=== PATIENT | male | born 1990 | race Caucasian/White ===

== ENCOUNTER 2023-06-28 10:24 | Outpatient (CLI) | payer BC, SELFPAY ==
--- NOTE | 2023-06-28 10:15 | RT.EKG_ITS ---
APPROVED REPORT Exam: Resting ECG Reason for Exam: Pre-Op Patient Location: O HR:76 bpm ECG Measurements Heart Rate 76 AXIS MI 124 P 17 QRSd 97 QRS 12 QT 358 T 40 QTc 403 Conclusion Sinus rhythm...normal P axis, V-rate 50- 99 Normal Electrocardiogram
== END 2023-06-28 10:25 | disposition home or self-care (01) ==
LOC: DI.KIM 10:25
PROVIDERS: PCP Nurse Practitioner Adult Health; Visit Provider Nurse Practitioner Adult Health
DX: Z01.818 Encounter for other preprocedural examination (principal)
CPT/HCPCS: 93010

== ENCOUNTER 2023-07-05 14:11 | Outpatient (CLI) | payer BC, SELFPAY ==
[2023-07-05 14:06] LABS: Abs Immature Grans 0.04 10^3/uL (0.0-0.06); Absolute Basophil Count 0.05 10^3/uL (0.0-0.2); Absolute Eosinophil Count 0.24 10^3/uL (0.0-0.7); Absolute Lymphocyte Count 2.56 10^3/uL (1.2-3.4); Absolute Monocyte Count 0.61 10^3/uL (0.1-0.8); Absolute Neutrophil Count 4.05 10^3/uL (1.2-6.7); Basophils % 0.7; Eosinophils % 3.2; HCT 48.9 % (40.0-50.0); HGB 16.8 g/dL (13.5-17.5); Immature Grans % 0.5; Lymphocytes % 33.9; MCH 30.3 pg (27.0-33.0); MCHC 34.4 % (32.0-36.0); MCV 88 fL (80-95); MPV 11.1 fL (8.0-11.0); Monocytes % 8.1; Neutrophils % 53.6; Platelet Count 274 10^3/uL (130-400); RBC 5.55 10^6/uL (4.36-5.78); RDW 12.5 % (11.8-14.1); RDW-SD 40.4 fL; WBC 7.55 10^3/uL (4.4-10.8)
[2023-07-05 14:16] LABS: Albumin 4.2 g/dL (3.4-5.0); Anion Gap 8.1 mmol/L (3-11); BUN 20 mg/dL (7-18); CO2 28.9 mmol/L (21.0-32.0); CREATININE 1.2 mg/dL (0.70-1.30); Chloride 103 mmol/L (98-107); Glucose 141 mg/dL (74-106); Sodium 140 mmol/L (136-145)
== END 2023-07-05 14:12 | disposition home or self-care (01) ==
LOC: LBO 14:11
PROVIDERS: PCP Nurse Practitioner Adult Health; Visit Provider Orthopaedic Surgery
DX: M87.051 Idiopathic aseptic necrosis of right femur (principal); M87.052 Idiopathic aseptic necrosis of left femur
CPT/HCPCS: 36415; 80048; 82040; 85025

== ENCOUNTER 2023-11-15 20:56 | Outpatient (REF) | payer BC, SELFPAY ==
[2023-11-15 20:56] LABS: Hemoglobin A1C 12.2 % (<5.7)
== END 2023-11-15 20:57 | disposition home or self-care (01) ==
LOC: LBN 20:56
PROVIDERS: PCP Nurse Practitioner Adult Health; Visit Provider Nurse Practitioner Family
DX: E11.9 Type 2 diabetes mellitus without complications (principal)
CPT/HCPCS: 83036

== ENCOUNTER 2024-06-23 03:39 | Outpatient (CLI) | payer BC, SELFPAY ==
[2024-06-23 09:39] LABS: Hemoglobin A1C 5.4 % (<5.7)
[2024-06-23 09:40] LABS: BUN 29 mg/dL (7-18); CREATININE 1.1 mg/dL (0.70-1.30); Calcium 9.8 mg/dL (8.5-10.1); Chloride 105 mmol/L (98-107); Glucose 120 mg/dL (74-106); Potassium 4.1 mmol/L (3.5-5.1); Sodium 143 mmol/L (136-145)
== END 2024-06-23 03:40 | disposition home or self-care (01) ==
PROVIDERS: Nurse Practitioner Family; PCP Nurse Practitioner Adult Health; Visit Provider Nurse Practitioner Adult Health
DX: E11.65 Type 2 diabetes mellitus with hyperglycemia
CPT/HCPCS: 36415; 80048; 80061; 82172; 82664; 83036

== ENCOUNTER 2024-10-22 06:36 | Emergency (ER) | payer BC, SELFPAY ==
[2024-10-22 06:39] VITALS: BP 152/85; PULSE 80; RESP 18; TEMP 36.6; O2SAT 99
--- NOTE | 2024-10-22 06:40 | ED.GENADUL_ITS ---
Discharge Plan Disposition Patient Disposition: Home Condition: Good Discharge Details Clinical Impression: Bursitis of left elbow Primary Care Provider: Katrina Jacob ED Provider: Baljinder Stanton Home Meds and New Rx's Prescriptions: New clindamycin HCl 150 mg capsule 450 mg PO Q6H 7 Days Qty: 84 0RF No Action naproxen 500 mg tablet 500 mg PO BID PRN (Reason: pain) Qty: 40 0RF Rx Instructions: Start by taking with food 2x/d x4 days, then PRN pain. (DME) blood-glucose meter [Accu-Chek Guide Glucose Meter] Misc See Rx Instructions .Route Qty: 1 0RF Rx Instructions: check QAM fasting (DME) Accu-Chek Guide test strips Strip See Rx Instructions .Route Qty: 100 3RF Rx Instructions: check QAM. DX: E11.9 (DME) Acti-Bulmaro Lancets 23 gauge misc See Rx Instructions .Route Qty: 100 3RF Rx Instructions: For daily checks DX: E11.9 Discharge Instructions Instructions: Bursitis ED Additional Instructions: At this time you have mild inflammation around the bursa of your left elbow. There is a chance there could be a mild infection from where the bug bite was. Please take the antibiotic as a precaution to prevent any worsening infection. The pain is secondary to inflammation. Please apply the Voltaren gel every 6-8 hours to the affected area. You can take 1000 mg of Tylenol every 6 hours which is the maximum dose. If needed you can also take a maximum dose of 800 mg of ibuprofen every 6 hours for if your pain persist despite the other treatment modalities. Please apply ice to the bursa frequently to help with the swelling. You can also gently wrap it in an Darvin wrap when you are not icing it to help with the swelling. Please avoid any strenuous activities or trauma or impact to the elbow for the next 5 to 7 days. If you notice spreading redness around your arm, worsening pain, worsening swelling please return immediately for reassessment. If you notice any worsening of your symptoms, or any new symptoms such as vomiting, diarrhea, fever, chills, shortness of breath, chest pain, numbness, weakness, or fainting , please return immediately to the emergency department for reevaluation. Please follow up with your primary care provider as soon as possible for reassessment and reevaluation. As always, it was a pleasure participating in your medical care today. Stand Alone Forms: Work Release Referrals: Katrina Jacob NP [Primary Care Provider, Medicine] HPI General Date/Time Provider Initiated Documentation: 10/22/24 06:38 . 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 Patient states that he may have had a bug bite on the left elbow yesterday, and then last night he did a high intensity workout with significant cord poles and push-up type exercises that resulted in notable movement of the left elbow. He woke up this morning with swelling around the olecranon, and mild pain and tenderness in that area. He denies fever or chills. He denies any trauma. No numbness or tingling. No other complaints at this time. Related Data Home Medications ?Medication ?Instructions ?Recorded ?Confirmed blood-glucose meter (Accu-Chek #1 ea 11/21/23 08/28/24 Guide Glucose Meter) blood sugar diagnostic (Accu-Chek #100 ea 12/11/2303/12 Guide test strips) lancets 23 gauge (Acti-Bulmaro #100 ea 12/11/23 08/28/24 Lancets) naproxen 500 mg tablet 500 mg PO BID PRN pain #40 t abs 08/28/24 10/22/24 clindamycin HCl 150 mg capsule 450 mg (3 x 150 mg) PO Q6H 7 days 10/22/24 #84 caps Previous Rx's ?Medication ?Instructions ?Recorded blood-glucose meter (Accu-Chek #1 ea 11/21/23 Guide Glucose Meter) blood sugar diagnostic (Accu-Chek #100 ea 12/11/23 Guide test strips) lancets 23 gauge (Acti-Bulmaro #100 ea 12/11/23 Lancets) naproxen 500 mg tablet 500 mg PO BID PRN pain #40 t abs 08/28/24 clindamycin HCl 150 mg capsule 450 mg (3 x 150 mg) PO Q6H 7 days 10/22/24 #84 caps Allergies Allergy/AdvReac Type Severity Reaction Status Date / Time cefaclor (From [facility]) Allergy Mild Skin Rash Verified 10/22/24 06:43 Penicillins Allergy Mild Skin Rash Verified 10/22/24 06:43 oxycodone AdvReac Mild intolerance Uncoded 10/22/24 06:43 Exam Narrative Exam Narrative: 1.Const: Well-nourished, Well-developed, appearing stated age 2.Eyes: PERRL, no conjunctival injection, and symmetrical lids. 3.ENT: Atraumatic external nose and ears. Moist MM. Neck: Symmetric, trachea midline, No thyromegaly. 4.CVS: +S1/S2, Peripheral pulses 2+ and equal in all extremities. Brisk capillary refill in all extremities. 5.RESP: Unlabored respiratory effort. Clear to auscultation bilaterally. No wheezes rales or rhonchi 6.GI: Soft, Nontender/Nondistended, No hepatosplenomegaly. No guarding or re bound. 7.MSK: Left elbow demonstrates mild swelling around the olecranon bursa, minimal redness in that area. There is also a pustular small central lesion which may have been a bug bite of some sort. No tick is noted. Movement of the elbow itself does not elicit tenderness. There is mild tenderness on palpation of the inflamed bursa itself. No spreading redness. No swelling throughout the rest of the arm hand or shoulder. No other signs of trauma. 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 Sensation grossly intact, no focal neurologic deficits. 10.Psych: (AAO) x3. 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 Patient states that he may have had a bug bite on the left elbow yesterday, and then last night he did a high intensity workout with significant cord poles and push-up type exercises that resulted in notable movement of the left elbow. He woke up this morning with swelling around the olecranon, and mild pain and tenderness in that area. He denies fever or chills. He denies any trauma. No numbness or tingling. No other complaints at this time. Left elbow demonstrates mild swelling around the olecranon bursa, minimal redness in that area. There is also a pustular small central lesion which may have been a bug bite of some sort. No tick is noted. Movement of the elbow itself does not elicit tenderness. There is mild tenderness on palpation of the inflamed bursa itself. No spreading redness. No swelling throughout the rest of the arm hand or shoulder. No other signs of trauma. Signs and symptoms appear consistent with mild olecranon bursitis versus mild superficial cellulitis likely from an initial arthropod bite secondary to the mild small pustular lesion in the center. There is no evidence of large abscess whatsoever. The pustular lesion is only about the size of a comedone. The head of the COVID and/pustular region was deroofed, and the internal component was drained with a small scant amount of fluid. This was sent for culture. There is no other surrounding erythema to suggest significant infected bursitis. No evidence of pain in the elbow itself to suggest septic or infected joint. No systemic symptoms. No trauma to necessitate need for imaging. Patient otherwise looks clinically well. Will recommend Voltaren gel, NSAID therapy, ice, Darvin wrap, and rest. Out of an abundance of caution to prevent significant infected bursitis, we will start the patient on clindamycin for MRSA coverage which he has tolerated in the past. We have sent the small scant amount of superficial pus for culture. Recommend probiotic in the meantime. Patient otherwise stable for discharge. Discussed red flags for which to return. I have extensively reviewed the treatment plan and discharge instructions with the patient. I have addressed all patient concerns at this time. The patient was made aware of what symptoms to monitor for that would warrant a return to the emergency department. Discussed the plan with the patient, they demonstrate verbal understanding and agreement with our assessment and plan at this time. The documentation in this chart was dictated using [employer] dictation software. Please excuse any dictation errors. 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, radiation and excision of mass completed 08/2019 Spinal cell Surgical History S/P ACL repair L x2 Mass of shoulder region (~10/2019) Radical resection of right shoulder mass synovial sarcoma 10/2019 Family History Father Alcohol use disorder Substance use disorder Heart attack Status post double vessel coronary artery bypass Mother Alcohol use disorder Substance use disorder Anxiety disorder Schizophrenia, catatonic Bipolar 1 disorder Maternal Grandfather Prostate cancer Maternal Grandmother Diabetes Stroke x2 Paternal Aunt Diabetes Paternal Uncle Diabetes Social History Smoking/Tobacco Use Status: Never Second Hand Exposure: No Smoking risk assessment performed?: Yes Alcohol Intake: current Alcohol Intake frequency: a few times a month Drug use: Never Adopted: No Caregiver/Support person: No Foster care: No Household members: spouse, children and other Details: 's sister Housing: apartment Number of Children: 2 number of grandchildren: 0 Communication Needs: None Education Level: college Details: Some Do you need help understanding health information?: Rarely current occupation: [employer] consultant Pets and animals: Yes (2 cats) Pets and animals: cat(s) Sexually active: Yes Do you think of yourself as: straight/heterosexual Current gender identity: male What is your relationship status?: How often do you talk on the phone with friends or family?: three or more times per week How often do you get together with friends or relatives?: once per week How often do you attend jehovah's witness or rastafari services?: 4 or more times per year Do you belong to any clubs or organized social groups?: yes Panel score (0-1 are the most socially isolated patients): 4 What type of physical activity do you participate in: regular exercise and other Details: Physical Therapy Duration: 30-45 minutes/day Frequency: daily Araseli/Orthodox: Christianity Special araseli needs: No Seatbelt use: always Helmet use: Yes Helmet use: always Drive intox or ride w/intox production truck driver: No
[2024-10-22] MEDS: Diclofenac 1% Gel 100 GM TUBE TP (07:01)
[2024-10-22] MEDS: Clindamycin 150 MG CAP, 12 CAPS/BTL 450 MG PO (07:02)
== END 2024-10-22 07:07 | disposition home or self-care (01) ==
PROVIDERS: Emergency Provider Student in an Organized Health Care Education/Training Program; PCP Nurse Practitioner Adult Health
DX: M70.32 Other bursitis of elbow, left elbow (principal)
CPT/HCPCS: 99283 ×2; 87077; 87070; 87186; 87205